=== PATIENT | male | born 1945 | race Caucasian/White ===

== ENCOUNTER 2019-02-02 12:59 | Emergency (ER) | payer SELFPAY ==
[2019-02-02 13:17] VITALS: TEMP 98.4; BMI 23.1
--- NOTE | 2019-02-02 13:20 | PDOC ---
Rapid Medical Evaluation Chief Complaint: Weakness Time Seen by Provider: 02/02/19 13:17 Medical Evaluation: Allergies Allergy/AdvReac Type Severity Reaction Status Date / Time No Known Allergies Allergy Verified 02/02/19 13:14 Vital Signs Temp Pulse Resp BP Pulse Ox 98.4 F 60 16 168/89 99 02/02/19 13:05 02/02/19 13:05 02/02/19 13:05 02/02/19 13:05 02/02/19 13:05 02/02/19 13:17 Pt c/o: sore throat x 2-3 weeks, poor solid intake and mild dizziness, states pt felt warm yesterday so gave nyquil. No med f/u since onset, No recent dental work or recent guide travel on brief exam: vss, no erythema to post soft palate/tonsils, raspy voice Pt ordered for: cbc, comp Pt to proceed to the ED Discharge Disposition - Diagnosis Weakness, Loss of appetite, Cough, Sore throat - Discharge Dispostion Disposition: HOME Condition at time of disposition: Stable - Referrals Referrals: Kali Penaloza MD [Staff Physician] - Reyes Ramesh MD, MD [Staff Physician] - - Patient Instructions Additional Instructions: It is very important that you make an appointment with the practice specialist, there is a nodule in your lungs which needs to be followed up. We made an appointment with a PCP for you at 11am on 02/07. - Post Discharge Activity
[2019-02-02] MEDS ORDERED: SODIUM CHLORIDE 1,000 ML IV STA (14:04)
--- NOTE | 2019-02-02 14:09 | PDOC ---
History of Present Illness - General Chief Complaint: Weakness Stated Complaint: LOSS OF APETTITE Time Seen by Provider: 02/02/19 13:17 History Source: Patient Exam Limitations: No Limitations - History of Present Illness Initial Comments: 02/02/19 14:06 73 yo M ex smoker, ex drinker, w/ no known PMhx comes in with sister c/o 1 month of a sore throat and cough, he only urinates once a day and has been losing a mlot of weight over the past 1 year. His clothes do not fit anymore. Also c/o loss of appetite and decrease in PO intake, no CP/SOB, no abdominal pain, no NVD, no back pain, no other complaints today. Pt does not have a PMD. Past History - Past Medical History Allergies/Adverse Reactions: Allergies Allergy/AdvReac Type Severity Reaction Status Date / Time No Known Allergies Allergy Verified 02/02/19 13:14 - Suicide/Smoking/Psychosocial Hx Smoking History: Never smoked Drug/Substance Use Hx: No Review of Systems - Review of Systems Able to Perform ROS?: Yes Constitutional: No: Chills, Fever, Malaise, Night Sweats HEENTM: Yes: Throat Pain. No: Eye Pain, Recent change in vision Respiratory: Yes: Cough. No: Shortness of Breath Cardiac (ROS): No: Chest Pain, Palpitations, Chest Tightness ABD/GI: Yes: Poor Appetite. No: Diarrhea, Nausea, Vomiting, Abdominal cramping : No: Dysuria, Hematuria Musculoskeletal: No: Back Pain Integumentary: No: Rash Neurological: No: Headache, Numbness, Dizziness Psychiatric: Yes: Change in Appetite Endocrine: Yes: Unexplained Weight Loss *Physical Exam - Vital Signs Last Vital Signs Temp Pulse Resp BP Pulse Ox 98.4 F 60 16 168/89 99 02/02/19 13:05 02/02/19 13:05 02/02/19 13:05 02/02/19 13:05 02/02/19 13:05 - Physical Exam General Appearance: Yes: Cachetic. No: Apparent Distress HEENT: positive: MEÑO, Normal ENT Inspection. negative: Normal Voice (voice hoarse), Pale Conjunctivae, Scleral Icterus (R), Scleral Icterus (L), Pharyngeal Erythema, Tonsillar Exudate, Nasal Congestion Neck: positive: Supple. negative: Decreased range of motion, Tender midline Respiratory/Chest: positive: Lungs Clear, Normal Breath Sounds. negative: Respiratory Distress, Accessory Muscle Use Cardiovascular: positive: Regular Rhythm, Regular Rate Gastrointestinal/Abdominal: positive: Normal Bowel Sounds, Soft. negative: Tender Musculoskeletal: positive: Normal Inspection. negative: CVA Tenderness, Decreased Range of Motion Extremity: positive: Normal Capillary Refill, Normal Inspection, Normal Range of Motion. negative: Tender, Pedal Edema Integumentary: positive: Normal Color, Dry. negative: Jaundice, Rash Neurologic: positive: Fully Oriented, Alert, Normal Mood/Affect ED Treatment Course - LABORATORY CBC & Chemistry Diagram: 02/02/19 14:31 02/02/19 14:31 - RADIOLOGY Radiology Studies Ordered: Category Date Time Status CHEST PA & LAT [RAD] Stat Radiology 02/02/19 14:01 Ordered Medical Decision Making - Medical Decision Making 02/02/19 14:09 73 yo M es smoker/drinker w/ chronic cough, sore throat, weight loss, loss of appetite, decrease in urination. Will do basic labs, CXR, HIV test and reassess R/O malignancy. 02/02/19 14:37 02/02/19 16:02 Labs reviewed. CXR shows a questionnable nodule. WIll discharge with pulmonology follow up. WIll also make an appointment for patient for a PMD. Appt made for 02/07 at 11am Return for worsening/concerning symptoms Pt verbalizes understanding and agrees with plan. 02/02/19 16:33 *DC/Admit/Observation/Transfer Diagnosis at time of Disposition: Weakness, Loss of appetite, Cough, Sore throat - Discharge Dispostion Disposition: HOME Condition at time of disposition: Stable - Referrals Referrals: Reyes Ramesh MD, MD [Staff Physician] - Kali Penaloza MD [Staff Physician] - - Patient Instructions Additional Instructions: It is very important that you make an appointment with the truck caterer, there is a nodule in your lungs which needs to be followed up. We made an appointment with a PCP for you at 11am on 02/07. - Post Discharge Activity
[2019-02-02 14:49] LABS: BASO % 1.2 % (0-2.0); EOS % 7.8 % (0-4.5); HEMATOCRIT 45.1 % (35.4-49); HEMOGLOBIN 15.4 GM/dL (11.7-16.9); MCH 30.4 pg (25.7-33.7); MCHC 34.1 g/dl (32.0-35.9); MEAN CELL VOLUME 89.2 fl (80-96); MEAN PLT VOLUME 7.4 fl (7.5-11.1); MONO % 6.4 % (3.8-10.2); NEUT % 74.6 % (42.8-82.8); PLATELET COUNT 251 K/MM3 (134-434); RBC 5.06 M/mm3 (4.00-5.60); RDW 13.9 % (11.9-15.9); WHITE BLOOD COUNT 7.3 K/mm3 (4.0-10.0)
[2019-02-02 15:10] LABS: ALBUMIN 3.6 g/dl (3.4-5.0); BILIRUBIN,TOTAL 0.8 mg/dL (0.2-1); BLOOD UREA NITROGEN 8.7 mg/dL (7-18); TOT PROT 7.3 g/dl (6.4-8.2)
[2019-02-02 15:48] LABS: URINE APPEARANCE CLEAR; URINE BILIRUBIN NEGATIVE (NEGATIVE); URINE COLOR YELLOW; URINE GLUCOSE (UA) NEGATIVE (NEGATIVE); URINE KETONE NEGATIVE (NEGATIVE); URINE LEUK ESTERASE NEGATIVE (NEGATIVE); URINE NITRITE NEGATIVE (NEGATIVE); URINE PROTEIN NEGATIVE (NEGATIVE)
[2019-02-02 16:43] VITALS: BP 152/77; PULSE 62
== END 2019-02-02 16:43 | disposition home or self-care (01) ==
LOC: EDBD → JER 12:59
PROC: 3E0337Z Introduction of Electrolytic and Water Balance Substance into Peripheral Vein, Percutaneous Approach (ICD-10-PCS; principal; 2019-02-02)
DX: J02.9 Acute pharyngitis, unspecified (principal); R05 Cough; R63.0 Anorexia; R53.1 Weakness
CPT/HCPCS: 36415; 71046-TC-FY; 80053; 81003; 85025; 87086; 87389; 99283-25; J7030